=== PATIENT | female | born 1995 | race Caucasian/White ===

== ENCOUNTER 2024-06-11 20:25 | Inpatient (IN) ==
[2024-06-11] MEDS ORDERED: Lidocaine 1% VIAL 10 MG/ML 30 ML VIAL INJ PRN (20:47)
[2024-06-11 21:59] LABS: ALT 21 U/L (7-52); Albumin 3.6 g/dL (3.2-5.2); Albumin/Globulin Ratio 1.6 (1-3); Alkaline Phosphatase 230 U/L (35-149); Blood Urea Nitrogen 6 mg/dL (6-24); CO2 Carbon Dioxide 20 mmol/L (22-32); Chloride 104 mmol/L (101-111); Creatinine, Serum 0.39 mg/dL (0.51-0.95); Globulin 2.3 g/dL (2-4); Glucose 82 mg/dL (70-100); Sodium 134 mmol/L (135-145); Total Bilirubin 0.4 mg/dL (0.2-1.0); Total Protein 5.9 g/dL (6.4-8.9); Uric Acid 3.2 mg/dL (2.3-6.6)
[2024-06-11 22:02] LABS: Anion Gap 10 mmol/L (2-16)
[2024-06-11 22:03] LABS: Urine Benzodiazepine Screen None Detected (None Detect); Urine Cannabinoids Screen None Detected (None Detect); Urine Creatinine Concentration 10.74 mg/dL (20.00-320.00); Urine Opiates Screen None Detected (None Detect); Urine TP Concentration < 5 mg/dL; Urine TP Creat Ratio 0.46 mg/mg
[2024-06-11 22:39] LABS: ABS Basophils 0.1 10^3/uL (0.0-0.1); ABS Eosinophils 0.1 10^3/uL (0.0-0.5); ABS Lymphocytes 2.3 10^3/uL (1.0-4.8); ABS Monocytes 0.8 10^3/uL (0.0-0.9); ABS Neutrophils 11.1 10^3/uL (1.5-7.6); ABS Nucleated RBC 0.02 10^3/ul; Eosinophil % 0.4 %; Hematocrit 25.7 % (35-45); Hemoglobin 8.5 g/dL (11.5-14.3); Mean Corpuscular Hgb Conc 32.9 g/dL (31-36); Mean Corpuscular Volume 78.9 fL (80-97); Mean Platelet Volume 8.6 fL (7.5-11.2); Nucleated Red Blood Cells % 0.1 %/100WBC (0.0-0.8); Platelet Count 211 10^3/uL (150-450); Red Blood Count 3.26 10^6/uL (3.63-4.92); Red Cell Distribution Width 16.7 % (12-17); White Blood Count 14.4 10^3/uL (3.8-11.8)
[2024-06-11] MEDS: Lactated Ringers 1000 ml BAG 1,000 ML IV SCH (23:39)
[2024-06-12] MEDS: OBEPIDURAL (200 ML) 200 ML EPIDURAL ONE (07:00)
[2024-06-12] MEDS ORDERED: Phenylephrine 40 mcg/mL 10mL (400mcg) SYRINGE IV PUSH PRN ×2 (07:17)
[2024-06-12 08:22] LABS: Urine Appearance Clear; Urine Bilirubin Negative (Negative); Urine Blood Negative (Negative); Urine Color Colorless; Urine Glucose Negative (Negative); Urine Ketones Trace (Negative); Urine Nitrite Negative (Negative); Urine Protein Negative (Negative); Urine Specific Gravity 1.007 (1.002-1.030); Urine Urobilinogen Negative (Negative)
[2024-06-12] MEDS: Oxytocin in LR 20,000 MILLI.UNIT/1,000 ML BAG IV SCH (15:00)
[2024-06-12] MEDS: OBEPIDURAL (200 ML) 200 ML EPIDURAL SCH (21:11)
[2024-06-12] MEDS: Lactated Ringers 1000 ml BAG 1,000 ML IV ONE ×2 (21:12)
[2024-06-12] MEDS: Lactated Ringers 1000 ml BAG 1,000 ML IV SCH (21:12)
[2024-06-12] MEDS ORDERED: Ondansetron 4 mg VIAL 2 MG/ML 2 ml VIAL IV PRN (21:39)
[2024-06-12] MEDS ORDERED: Bupivacaine 0.25% SDV PF 10 ML VIAL INJ ONE (22:00)
[2024-06-13] MEDS: Terbutaline INJ 1 MG/ML 1 ml VIAL SUBCUT ONE (00:05)
[2024-06-13] MEDS ORDERED: ceFAZolin VIAL 2 GM in NS 0.9% 100 ml BAG 100 ML IVPB ONE (00:08)
[2024-06-13] MEDS: Buffered Lidocaine 1% SYRIN 1 ml INTRADERM ONE (00:09)
[2024-06-13] MEDS: Lidocaine 1% MPF 5 ML VIAL ONE (00:09)
[2024-06-13] MEDS: Terbutaline INJ 1 MG/ML 1 ml VIAL ONE (00:10)
[2024-06-13] MEDS: Lidocaine 1.5% EPI 1:200,000 30 ML SDV ONE (00:11)
[2024-06-13] MEDS ORDERED: Lidocaine 2% w/ EPI 1:200,000 MPF 20 ML SDV VIAL ONE (00:27)
[2024-06-13] MEDS: Sodium Citrate/Citric Acid LIQ 15 ML UDC PO PRN (00:35)
[2024-06-13] MEDS ORDERED: Morphine PF AMP (0.5MG/ML) 5 MG/10 ML AMP ONE (01:07)
[2024-06-13] MEDS ORDERED: fentaNYL 100 mcg/2 ml 50 MCG/ML VIAL ONE (01:07)
[2024-06-13] MEDS ORDERED: Oxytocin 10 UNITS/ML 1 ML VIAL ONE ×3 (01:10→01:26)
[2024-06-13] MEDS ORDERED: Propofol 10 MG/ML 20 ML BTL ONE (01:26)
[2024-06-13] MEDS ORDERED: Dibucaine 1% OINT 28.35 GM TUBE PR PRN (01:48)
[2024-06-13] MEDS ORDERED: Witch Hazel PAD JAR TOPICAL PRN (01:48)
[2024-06-13] MEDS ORDERED: Glycerin ADULT 2.4 gm SUPP PR PRN (01:48)
[2024-06-13] MEDS ORDERED: Lactated Ringers 1000 ml BAG 1,000 ML IV SCH (02:00)
[2024-06-13] MEDS: ceFAZolin 2 GM/50 ML BAG IV ONE (02:11)
[2024-06-13] MEDS: Azithromycin 500 mg/250 ml NS 500 MG/250 ML BAG IVPB ONE (02:11)
[2024-06-13] MEDS: Methylergonovine 0.2 mg AMPULE 1 ml AMP ONE (02:16)
[2024-06-13] MEDS: Phenylephrine 40 mcg/mL 10mL (400mcg) SYRINGE ONE (02:16)
[2024-06-13] MEDS ORDERED: Metoclopramide 5 MG/ML VIAL (10 mg) IV PRN (08:23)
[2024-06-13] MEDS ORDERED: Ondansetron 4 mg VIAL 2 MG/ML 2 ml VIAL IV PRN (08:23)
[2024-06-13] MEDS ORDERED: Acetaminophen IV 1 GM/100ML 1,000 MG/100 ML BAG IV PRN (08:23)
[2024-06-13] MEDS ORDERED: Naloxone 0.4 mg VIAL 0.4 mg/ml 1 ml VIAL IV PUSH PRN (08:23)
[2024-06-13 08:48] LABS: Hematocrit 25.5 % (35-45); Hemoglobin 8.3 g/dL (11.5-14.3); Mean Corpuscular Hemoglobin 25.7 pg (27-33); Mean Corpuscular Hgb Conc 32.5 g/dL (31-36); Mean Platelet Volume 8.4 fL (7.5-11.2); Platelet Count 224 10^3/uL (150-450); Red Blood Count 3.23 10^6/uL (3.63-4.92); Red Cell Distribution Width 16.7 % (12-17); White Blood Count 28.7 10^3/uL (3.8-11.8)
[2024-06-13 09:28] LABS: ABS Monocytes 1.4 10^3/uL (0.0-0.9); ABS Neutrophils 26.3 10^3/uL (1.5-7.6); ABS Nucleated RBC 0.02 10^3/ul; Lymphocyte % 3.3 %; Nucleated Red Blood Cells % 0.1 %/100WBC (0.0-0.8)
[2024-06-14 10:06] LABS: ABS Eosinophils 0.1 10^3/uL (0.0-0.5); ABS Lymphocytes 1.9 10^3/uL (1.0-4.8); ABS Neutrophils 17.6 10^3/uL (1.5-7.6); ABS Nucleated RBC 0.02 10^3/ul; Eosinophil % 0.5 %; Hematocrit 23.4 % (35-45); Hemoglobin 7.4 g/dL (11.5-14.3); Mean Corpuscular Hemoglobin 24.9 pg (27-33); Mean Corpuscular Hgb Conc 31.6 g/dL (31-36); Mean Corpuscular Volume 78.8 fL (80-97); Mean Platelet Volume 8.3 fL (7.5-11.2); Nucleated Red Blood Cells % 0.1 %/100WBC (0.0-0.8); Platelet Count 233 10^3/uL (150-450); Red Blood Count 2.97 10^6/uL (3.63-4.92); Red Cell Distribution Width 16.9 % (12-17); White Blood Count 20.6 10^3/uL (3.8-11.8)
[2024-06-14] MEDS: Iron Sucrose 200 MG in NS 0.9% 100 ml BAG 100 ML IVPB ONE (11:06)
[2024-06-14] MEDS: Polyethylene Glycol 3350 17 GM PACKET PO PRN (15:25)
[2024-06-15 07:51] VITALS: BP 110/72
== END 2024-06-15 13:45 | disposition home or self-care (01) | DRG 788 ==
LOC: MCHOBOUT 20:25 → MCHOB 20:50
PROVIDERS: ADMIT Midwife; ATTEND Obstetrics & Gynecology